=== PATIENT | male | born 1975 ===

== ENCOUNTER 2024-08-10 16:10 | Emergency (ER) | payer OTHER ==
[~2024-08-10] VITALS: Ht 170.2 cm; Wt 86.4 kg
[2024-08-10 16:17] VITALS: BP 135/77; PULSE 67; RESP 20; TEMP 98.7; O2SAT 100
[2024-08-10] MEDS: LIDOCAINE 1% 10 ML VIAL SQ ONE (17:38)
[2024-08-10] MEDS: PERTUSS(ACELL),DIPH,TET/PF 0.5 ML SYRINGE [ADULT] IM. ONE (17:39)
== END 2024-08-10 19:02 | disposition home or self-care (01) ==
LOC: EMS 16:10
DX: S81.812A Laceration without foreign body, left lower leg, initial encounter (principal); Z23 Encounter for immunization; Z98.890 Other specified postprocedural states; W22.8XXA Striking against or struck by other objects, initial encounter; Y93.89 Activity, other specified; Y92.148 Other place in prison as the place of occurrence of the external cause; Y99.0 Civilian activity done for income or pay
CPT/HCPCS: 99283; 73590; 90715; 90471; 12004; J3490